=== PATIENT | female | born 1980 | race Caucasian/White ===

== ENCOUNTER 2020-09-25 12:10 | Inpatient (IN) | payer OTHER ==
[~2020-09-25] VITALS: Ht 157.5 cm; Wt 54.5 kg
[~2020-09-25 12:10] MED LIST: KEPPRA500 MG PO
[2020-09-25] MEDS ORDERED: KEPPRA1000 MG PO (12:17)
[2020-09-25] MEDS ORDERED: CYCLOBENZAPRINE5 MG PO (12:17)
[2020-09-25] MEDS ORDERED: METOPROLOL TART25 MG PO (12:17)
[2020-09-25] MEDS ORDERED: HYDROCHLOROTHIA25 MG PO (12:18)
[2020-09-25] MEDS ORDERED: CLONIDINE HCL0.1 MG PO (12:18)
[2020-09-25] MEDS ORDERED: LISINOPRIL40 MG PO (12:19)
[2020-09-25 13:18] LABS: BASOPHILS 0.3 % (0-2); EOSINOPHILS 1.9 % (0-7); HEMATOCRIT 31.8 % (36.0-48.0); HEMOGLOBIN 10.9 g/dL (12-16); IMMATURE GRANULOCYTES 0.1 % (0-5); LYMPHOCYTE ABS# 0.42 10x3/uL (1.18-3.74); MCH 34.7 pg (26.0-34.0); MCHC 34.3 g/dL (31.0-37.0); MCV 101.3 fL (80.0-100.0); MONOCYTES 7.5 % (2-11); NEUTROPHIL ABS# 5.87 10x3/uL (1.56-6.13); NEUTROPHILS 84.2 % (40-80); RBC 3.14 10x6/uL (4.00-5.40); RDW 15.5 % (11.5-14.5)
[2020-09-25 13:22] LABS: APTT 31.2 SECONDS (22.8-39.4); CALC OSMOLALITY 274 mosm/kg (275-300); CALCIUM 7.8 mg/dL (8.5-10.1); CARBON DIOXIDE 25.5 mmol/L (21.0-32.0); CHLORIDE - SERUM 102 mmol/L (98-107); CREATININE - SERUM 0.6 mg/dL (0.6-1.3); GLUCOSE 90 mg/dL (74-106); INR 1.01 (0.85-1.17); POTASSIUM - SERUM 3.5 mmol/L (3.5-5.1); PROTIME 12.3 SECONDS (11.6-15.0); SODIUM 139 mmol/L (136-145); UREA NITROGEN 4 mg/dL (7-18); eGFR NON AFRICAN AMERICAN > 90 mL/min (90-120)
[2020-09-25 13:23] LABS: PLATELET COUNT 133 10x3/uL (130-400)
[2020-09-25 13:47] LABS: ALBUMIN 3.2 g/dL (3.4-5.0); ALKALINE PHOSPHATASE 78 U/L (30-120); ALT (SGPT) 26 U/L (10-68); BILIRUBIN - TOTAL 0.29 mg/dL (0.2-1.3); CKMB 0.8 U/L (0.0-3.6); CREATINE KINASE 95 UL (21-215); PRO BNP 75 pg/mL (0-125); PROTEIN - SERUM 6.3 g/dL (6.4-8.2)
[2020-09-25 13:48] LABS: TROPONIN-I < 0.017 ng/mL (0.000-0.060)
[2020-09-25 13:53] LABS: AMYLASE - SERUM 93 U/L (25-115); LIPASE 2163 U/L (73-393)
[2020-09-25 15:19] VITALS: BP 146/97
--- NOTE | 2020-09-25 16:38 | NUR ---
ARRIVED TO UNIT PER W/C
[2020-09-25 17:29] VITALS: Ht 157.5 cm; Wt 54.5 kg
--- NOTE | 2020-09-25 18:17 | NUR ---
COVID SWAB OBTAINED, LUCY WELL, ISOLATION SET UP, WILL BE MOVED TO MED 2 WHEN HOUSE ASSIGNS BED
--- NOTE | 2020-09-25 19:23 | NUR ---
REPORT CALLED TO FATOUMATA ON MED 2, PT TO MOVE TO ROOM 2134
[2020-09-25 20:52] VITALS: BP 134/89
[2020-09-25 21:15] LABS: SARS-CoV-2 ANTIGEN NEGATIVE- SARS-COV-2 (NEGATIVE)
[2020-09-26 01:38] VITALS: BP 141/92
[2020-09-26 05:44] VITALS: BP 131/90
[2020-09-26 05:59] LABS: BASOPHILS 0.3 % (0-2); EOSINOPHILS 2.6 % (0-7); HEMATOCRIT 28.4 % (36.0-48.0); HEMOGLOBIN 9.4 g/dL (12-16); IMMATURE GRANULOCYTES 0.2 % (0-5); LYMPHOCYTE ABS# 0.88 10x3/uL (1.18-3.74); LYMPHOCYTES 15.1 % (15-50); MCH 34.3 pg (26.0-34.0); MCHC 33.1 g/dL (31.0-37.0); MEAN PLATELET VOLUME 9.7 fL (7.4-10.4); MONOCYTES 12.2 % (2-11); NEUTROPHIL ABS# 4.06 10x3/uL (1.56-6.13); NEUTROPHILS 69.6 % (40-80); PLATELET COUNT 125 10x3/uL (130-400); RBC 2.74 10x6/uL (4.00-5.40); RDW 15.6 % (11.5-14.5); WBC 5.8 10x3/uL (4.8-10.8)
[2020-09-26 06:16] LABS: MCV 103.6 fL (80.0-100.0)
[2020-09-26 06:26] LABS: ALBUMIN 2.6 g/dL (3.4-5.0); ALKALINE PHOSPHATASE 62 U/L (30-120); ALT (SGPT) 20 U/L (10-68); BILIRUBIN - TOTAL 0.31 mg/dL (0.2-1.3); CALC OSMOLALITY 272 mosm/kg (275-300); CALCIUM 7.2 mg/dL (8.5-10.1); CARBON DIOXIDE 25.6 mmol/L (21.0-32.0); CHLORIDE - SERUM 102 mmol/L (98-107); CREATININE - SERUM 0.5 mg/dL (0.6-1.3); GLUCOSE 92 mg/dL (74-106); POTASSIUM - SERUM 3.2 mmol/L (3.5-5.1); PROTEIN - SERUM 5.7 g/dL (6.4-8.2); SODIUM 138 mmol/L (136-145); UREA NITROGEN 3 mg/dL (7-18); eGFR NON AFRICAN AMERICAN > 90 mL/min (90-120)
[2020-09-26 06:37] LABS: LIPASE 100 U/L (73-393)
[2020-09-26 08:07] VITALS: BP 127/84
--- NOTE | 2020-09-26 08:08 | NUR ---
AM MEDS GIVEN AT THIS TIME. PT A/O X4, RESP EVEN AND NONLABORED ON RA. LT FA INFUSING NS AT 125CC/HR. MORPHINE SALES ENGINEER AT 1MG Q10 10MG LOCKOUT. PT DENIES ANY NEEDS AT THIS TIME. ALL NEEDS MET, CALL LIGHT IN REACH, WILL CONTINUE PLAN OF CARE.
--- NOTE | 2020-09-26 08:54 | NUR ---
CHANGED MORPHINE DIE TURNER SYRINGE AT THIS TIME. PT RATES PAIN LEVEL OF 5/10. DR. DURÁN AT BEDSIDE TO ASSESS PT. ALL NEEDS MET, CALL LIGHT IN REACH.
[2020-09-26 12:06] VITALS: BP 131/93
--- NOTE | 2020-09-26 12:29 | NUR ---
PROVIDED PT WITH PROTONIX AND TESSALON AT THIS TIME. PT DENIES ANY NEEDS, CALL LIGHT IN REACH.
--- NOTE | 2020-09-26 15:31 | NUR ---
PT CAN COME OUT OF ISOLATION PER DR. SANDHU.
[2020-09-26 16:55] VITALS: BP 123/86
--- NOTE | 2020-09-26 19:24 | NUR ---
RECEIVED REPORT, WILL ASSUME CARE OF PT, TALKING ON PHONE, DENIES ANY NEEDS AT THIS TIME, BED IS LOW, SRX2, CALL LIGHT IN REACH, WILL CONTINUE PLAN OF CARE
[2020-09-26 20:00] VITALS: BP 153/106
--- NOTE | 2020-09-26 23:55 | NUR ---
I have reviewed this patient and I concur with the Shift Assessment completed by the Licensed Practical Nurse today this shift.
[2020-09-27] VITALS: BP 150/104
[2020-09-27 04:00] VITALS: BP 161/114
[2020-09-27 05:51] LABS: BASOPHILS 0.2 % (0-2); EOSINOPHILS 2.3 % (0-7); HEMATOCRIT 29.6 % (36.0-48.0); HEMOGLOBIN 9.9 g/dL (12-16); IMMATURE GRANULOCYTES 0.2 % (0-5); LYMPHOCYTE ABS# 0.79 10x3/uL (1.18-3.74); LYMPHOCYTES 16.8 % (15-50); MCH 34.4 pg (26.0-34.0); MCHC 33.4 g/dL (31.0-37.0); MCV 102.8 fL (80.0-100.0); MEAN PLATELET VOLUME 9.9 fL (7.4-10.4); MONOCYTES 10.4 % (2-11); NEUTROPHILS 70.1 % (40-80); RBC 2.88 10x6/uL (4.00-5.40); RDW 15.1 % (11.5-14.5); WBC 4.7 10x3/uL (4.8-10.8)
[2020-09-27 05:52] LABS: PLATELET COUNT 163 10x3/uL (130-400)
[2020-09-27 06:31] LABS: ALBUMIN 2.7 g/dL (3.4-5.0); ALKALINE PHOSPHATASE 68 U/L (30-120); ALT (SGPT) 16 U/L (10-68); BILIRUBIN - TOTAL 0.39 mg/dL (0.2-1.3); CALC OSMOLALITY 272 mosm/kg (275-300); CALCIUM 7.6 mg/dL (8.5-10.1); CARBON DIOXIDE 26.5 mmol/L (21.0-32.0); CHLORIDE - SERUM 101 mmol/L (98-107); CREATININE - SERUM 0.6 mg/dL (0.6-1.3); GLUCOSE 96 mg/dL (74-106); LIPASE 78 U/L (73-393); POTASSIUM - SERUM 3.4 mmol/L (3.5-5.1); PROTEIN - SERUM 5.8 g/dL (6.4-8.2); SODIUM 138 mmol/L (136-145); UREA NITROGEN 3 mg/dL (7-18); eGFR NON AFRICAN AMERICAN > 90 mL/min (90-120)
[2020-09-27] MEDS ORDERED: TESSALON PERLE100 MG PO (06:46)
[2020-09-27] MEDS ORDERED: HYDROCODON-ACE1 EA10 PO (06:47)
[2020-09-27 08:23] VITALS: BP 150/114
--- NOTE | 2020-09-27 09:16 | NUR ---
PROVIDED VERBAL AND WRITTEN DISCHARGE TEACHING TO PT, WHO VERBALIZED UNDERSTANDING REGARDING TEACHING. D/C LT FA IV WITH CATHETERT TIP INTACT. PT REFUSED WHEELCHAIR, LEFT UNIT VIA AMBULATORY WITH ALL BELONGINGS, NAD NOTED.
--- NOTE | 2020-09-27 16:57 | NUR ---
PATIENT TO CALL WITH NO NORCO AT [facility]. I CALLED UP THERE AND SHE IS CORRECT. I CALLED DR HARTMAN WHO IS OPERATOR [employer] FOR DR SANDHU AND TOLD HIM ABOUT IT. HE IS GOING TO WRITE A SCRIPT. I THEN CALLED THE PATIENT AND TOLD HER TO GET IT TOMORROW FROM OFFICE. SHE ASKED IF SOMEONE ELSE COULD PICK IT UP AND I TOLD HER IT WAS UP TO THE CLINIC.
== END 2020-09-27 09:17 | disposition home or self-care (01) | DRG 440 ==
LOC: D.ER 12:10 → D.MS 14:24 → D.M2 14:24
PROVIDERS: Family Medicine; ADMIT Family Medicine; ATTEND Family Medicine
DX: K85.90 Acute pancreatitis without necrosis or infection, unspecified (principal); I10 Essential (primary) hypertension; F17.200 Nicotine dependence, unspecified, uncomplicated; J40 Bronchitis, not specified as acute or chronic; F10.20 Alcohol dependence, uncomplicated